=== PATIENT | female | born 1975 | race Caucasian/White ===

== ENCOUNTER 2025-03-07 14:41 | Emergency (ER) | payer BC, SELFPAY ==
[2025-03-07 14:43] VITALS: BP 153/103
[2025-03-07 18:39] VITALS: BP 120/77
[2025-03-07 19:10] VITALS: BMI 25.0
--- NOTE | 2025-03-07 19:35 | ED.GENMED ---
History of Present Illness
<Lisa Hernandez MD, Resident - Last Filed: 03/08/25 01:13 EDT>
General
Chief Complaint: Eye Problems
Source: patient
Time Seen by Provider: 03/07/25 18:28
History of Present Illness
History of Present Illness:
49-year-old female with past medical history of hypothyroidism presents to the ER for right eye pain. Yesterday, she was picking jalapenos (some of which were smushed) and doing a lot of yard work. When she went to take out her contacts at night,
she noted right eye burning. She felt it was tolerable, did not rinse her eyes, and when to bed. The next morning, she woke up with significant redness and swelling around the eye. She attempted to rinse out her eye with milk which did not help. She
endorses tearing, blurry vision and now fatigue and discomfort with eye movement. She denies any fever, chills, URI symptoms, discharge, warmth, tenderness in the face. She denies any N/V.
Past History
<Lisa Hernandez MD, Resident - Last Filed: 03/08/25 01:13 EDT>
Past History
ED Past Medical History: Hypothyroidism
ED Past Surgical History: Other (Thyroid removal)
Social History
Tobacco: Non-smoker
Alcohol: None
Personal:
Living: with family
Review of Systems
<Lisa Hernandez MD, Resident - Last Filed: 03/08/25 01:13 EDT>
Review of Systems
Allergies reviewed?: Yes
Constitutional: Reports no symptoms
EENT: Reports tearing
Respiratory: Reports no symptoms
Cardiac: Reports no symptoms
ABD/GI: Reports no symptoms
: Reports no symptoms
Musculoskeletal: Reports no symptoms
Skin: Reports no symptoms
Neurological: Reports no symptoms
Endocrine: Reports no symptoms
Phy Exam
<Lisa Hernandez MD, Resident - Last Filed: 03/08/25 01:13 EDT>
Physical Exam
Physical Exam:
General: Well appearing
Head: Atraumatic
Eyes: Right eye scleral injection, erythema around eye, no corneal abrasion or scratch noted with fluorescein lamp. No forign body noted.
Cardiac: Regular S1, S2, no murmurs
Respiratory: Clear breath sounds bilaterally
Psych: Calm
Course
<Lisa Hernandez MD, Resident - Last Filed: 03/08/25 01:13 EDT>
Orders/Labs/Results
Orders:
Orders
03/07/25 20:25
Tetracaine HCl [Tetracaine 0.5% Ophthalmic Solution] 1 drop .ROUTE .STK-MED ONE
Vital Signs
Initial and Last Documented VS:
Initial Vital Signs
Temp Pulse Resp BP Pulse Ox
98.3 F 94 18 153/103 99
03/07/25 14:43 03/07/25 14:43 03/07/25 14:43 03/07/25 14:43 03/07/25 14:43
Last Documented Vital Signs
Temp Pulse Resp BP Pulse Ox
98.3 F 65 18 120/77 99
03/07/25 14:43 03/07/25 18:39 03/07/25 18:39 03/07/25 18:39 03/07/25 19:37
<Eliel France, DO - Last Filed: 03/07/25 20:05>
Orders/Labs/Results
Orders:
Orders
03/07/25 20:25
Tetracaine HCl [Tetracaine 0.5% Ophthalmic Solution] 1 drop .ROUTE .STK-MED ONE
Vital Signs
Initial and Last Documented VS:
Initial Vital Signs
Temp Pulse Resp BP Pulse Ox
98.3 F 94 18 153/103 99
03/07/25 14:43 03/07/25 14:43 03/07/25 14:43 03/07/25 14:43 03/07/25 14:43
Last Documented Vital Signs
Temp Pulse Resp BP Pulse Ox
98.3 F 65 18 120/77 99
03/07/25 14:43 03/07/25 18:39 03/07/25 18:39 03/07/25 18:39 03/07/25 19:37
<Lisa Hernandez MD, Resident - Last Filed: 03/08/25 01:13 EDT>
MDM/Problems Addressed
Differential Diagnosis Includes:
viral or bacterial conjunctivitis, chemical conjunctivitis, corneal abrasion, corneal laceration,
MDM/Problems Addressed:
Based on history and physical exam findings, chemical conjunctivitis due to jalopeno most likely. Especially because she did not rinse out her eye after taking out her contacts. Recommended follow-up with marketing database consultant in the next few days and use
of ciprofloxacin eyedrops. Aware of levofloxacin allergy causing nausea and vomiting. Unlikely to have this allergic reaction with topical eyedrops.
<Lisa Hernandez MD, Resident - Last Filed: 03/08/25 01:13 EDT>
*Pulse Oximetry
SaO2: 99
Oxygen Mode of Delivery: Room air
Patient hypoxic: no
*Critical Care Note
Total Time (30-74mins, 75-104mins- exclusive of procedures): Not Applicable
ED Attending Note
<Lisa Hernandez MD, Resident - Last Filed: 03/08/25 01:13 EDT>
-
Portions of this chart may have been created with voice recognition software.� Occasional wrong word or��sound alike� substitutions may have occurred due to the inherent limitations of voice recognition software.
<Eliel France, DO - Last Filed: 03/07/25 20:05>
ED Attending Note
Patient seen and examined by attending physician: Yes
I performed a history and physical exam of patient and discussed management with resident, I reviewed resident's note and agree with documented findings and plan of care.: Yes
ED Attending Note:
I reviewed and agree with history treatment plan by Lisa Hernandez MD. My exam revealed
Bilateral eyes pupils equal round reactive to light and accommodating left side scleral normal, normal pupil and conjunctiva. Right side with scleral injection. Otherwise normal. Improved after tetracaine drops. [facility] Treat with ciprofloxacin drops. Patient had systemic reaction do not suspect this will give her a allergic reaction.
Discharge Plan
Departure
Patient Disposition: Home (Routine Discharge)
Date of Disposition: 03/07/25
Time of Disposition: 20:03
Patient with high blood pressure during this ER visit?: Yes
Discharge Problem:
Acute chemical conjunctivitis
Instructions: How to Use Eye Drops
Prescriptions:
New
ciprofloxacin HCl 0.3 % drops
See Rx Instructions .ROUTE .COMPLEX Qty: 2.5 0RF
Rx Instructions:
1-2 drops into affected eye 4 times a day for 3-5 days
No Action
levothyroxine 100 MCG tablet
100 mcg PO DAILY
hydrocodone-acetaminophen 1 TABLET tablet
1 tab PO Q4HPRN PRN (Reason: severe pain) Qty: 20 0RF
cephalexin 500 MG capsule
500 mg PO QID Qty: 39 0RF
cyclobenzaprine 10 MG tablet
10 mg PO TIDPRN PRN (Reason: spasm) Qty: 10 0RF
Referrals:
Zoey Montalvo PA-C [Family Provider, Internal Medicine]
Jennyfer Bills MD [Active, Ophthalmology]
Referral Note: In the next few days
Interventions
Interventions:
*Risk Screen - Suicide Last Done: 03/07/25 14:43
*General Assessment Last Done: 03/07/25 14:43
*Neglect/Abuse Screening Last Done: 03/07/25 14:43
*ED- Fall Risk Assessment Last Done: 03/07/25 18:31
*ED COVID-19 Vaccine History Last Done: 03/07/25 18:31
*ED Influenza Vaccine History Last Done: 03/07/25 18:31
*Nursing Disposition Last Done: 03/07/25 20:54
Discharge Date and Time
Discharge Date/Time: 03/07/25 20:55
Print Language: FIJIAN
== END 2025-03-07 20:55 | disposition home or self-care (01) ==
LOC: EMR 14:41
PROVIDERS: EMERGENCY PHYSICIAN Emergency Medicine; FAMILY PHYSICIAN Physician Assistant
DX: H10.211 Acute toxic conjunctivitis, right eye (principal); E03.9 Hypothyroidism, unspecified
CPT/HCPCS: 99283